=== PATIENT | female | born 1950 | race Caucasian/White ===

== ENCOUNTER 2024-06-20 16:19 | Outpatient (CLI) | payer MEDICARE, SELFPAY ==
--- NOTE | ~2024-06-20 | MR_ITS ---
EXAMINATION: MR knee RT wo con DATE: 06/20/2024 17:19 INDICATION: PAIN OF RT KNEE JOINT TECHNIQUE: Magnetic resonance imaging (MRI) of the right knee was performed without intravenous contr ast. Sequences included axial PD-weighted FS FSE, coronal PD-weighted FSE and PD-weighted FS FSE, sag ittal PD-weighted FSE, and sagittal T2-weighted FS FSE. COMPARISON: None. FINDINGS: Medial compartment: Small oblique undersurface tear of the posterior horn. Moderate diffuse cartilage thinning. Mild oste ophytosis. Lateral compartment: Apical tear of the meniscal body. Mild diffuse cartilage thinning. Moderate osteophytosis. Patellofemoral compartment: Moderate cartilage thinning. Mild osteophytosis. Intact retinacula Ligaments and tendons: The ACL, PCL, MCL, and LCL are intact. Remaining flexor and extensor tendons are intact. Fluid: Small volume joint fluid. Osseous/other: No suspicious focal or diffuse marrow signal. IMPRESSION: Oblique undersurface tear of the posterior horn, medial meniscus. Apical tear of the body of the lateral meniscus. Moderate tricompartmental osteoarthritis. Reviewed, dictated and finalized at location K.
== END 2024-06-20 16:20 | disposition home or self-care (01) ==
PROVIDERS: PCP Internal Medicine; Visit Provider Internal Medicine
DX: M17.11 Unilateral primary osteoarthritis, right knee (principal); S83.281A Other tear of lateral meniscus, current injury, right knee, initial encounter; X58.XXXA Exposure to other specified factors, initial encounter
CPT/HCPCS: 73721